=== PATIENT | female | born 1990 | race Caucasian/White ===

== ENCOUNTER 2019-05-24 01:07 | Emergency (ER) | payer MEDICAID ==
[~2019-05-24] VITALS: Ht 157.5 cm; Wt 149.7 kg
[2019-05-24] MEDS ORDERED: ONDANSETRON HCL/PF 4 MG/2 ML VIAL ONE (01:25)
[2019-05-24] MEDS ORDERED: MORPHINE SULFATE INJ 4 MG/ML DISP.SYRIN ONE (01:26)
[2019-05-24] MEDS ORDERED: IV NS 0.9% 1,000 ML BAG IV ONE (01:30)
[2019-05-24] MEDS ORDERED: MORPHINE SULFATE INJ 2 MG/ML DISP.SYRIN IV ONE (01:30)
[2019-05-24] MEDS ORDERED: ONDANSETRON HCL/PF 4 MG/2 ML VIAL IVP ONE (01:30)
--- NOTE | 2019-05-24 01:47 | NUR ---
BIB SELF WITH MOTHER. TO ER BED 9. AAOX4. AMBULATORY. NO RESP DISTRESS. C/O RUQ PAIN. PT REPORTS PAIN STARTED YESTERDAY, RATES PAIN AT 9/10. SHARP THROBBING DULL AND ACHING, INTERMETENT. PT REPORTS HAVING GALLSTONE AND SHE ATE RIBS YESTERDAY AND PAIN STARTED. PT ALSO REPORTS NAUSEA AND VOMMITNG. MD AT BEDSIDE FOR EVAL. ORDERS RECEIVED, NOTED AND CARRIED OUT. IV LINF OBTAINED ON RFA 20G. BLOOD DRAWN BY Vapotherm. PT ALSO MEDICATED
[2019-05-24 01:51] LABS: BASOPHILS # (AUTO) 0.1 /CMM (0.0-0.2); BASOPHILS % (AUTO) 0.5 % (0.0-2.0); EOSINOPHILS % (AUTO) 0.9 % (0.0-6.0); HEMATOCRIT 33 % (33-45); HEMOGLOBIN 10.6 g/dL (11.5-14.8); LYMPHOCYTES # (AUTO) 3.2 /CMM (0.8-4.8); LYMPHOCYTES % (AUTO) 29.6 % (20.0-44.0); MEAN CORPUSCULAR HGB CONC 32 g/dl (31.0-36.0); MEAN CORPUSCULAR VOLUME 77 fL (82-100); MONOCYTES # (AUTO) 0.7 /CMM (0.1-1.30); MONOCYTES % (AUTO) 6.3 % (2.0-12.0); NEUTROPHILS # (AUTO) 6.7 /CMM (1.8-8.9); NEUTROPHILS % (AUTO) 62.7 % (43.0-81.0); PLATELET COUNT (AUTO) 363 /CMM (150-450); RED BLOOD CELL COUNT(AUTO) 4.26 MIL/uL (4.0-5.2); WHITE BLOOD COUNT (AUTO) 10.7 K/uL (4.3-11.0)
[2019-05-24 02:02] LABS: CALCIUM, SERUM 8.5 mg/dL (8.5-10.1); CREATININE 0.7 mg/dL (0.6-1.3); POTASSIUM 3.7 mmol/L (3.5-5.1)
[2019-05-24 02:08] LABS: ALBUMIN 3.4 g/dL (3.4-5.0); BILIRUBIN,DIRECT 0.1 mg/dL (0.0-0.2); BILIRUBIN,TOTAL 0.3 mg/dL (0.2-1.0); TOTAL PROTEIN, SERUM 7.6 g/dL (6.4-8.2)
[2019-05-24] MEDS ORDERED: HYDROMORPHONE 1 MG/1 ML DISP.SYRIN ONE (02:24)
[2019-05-24] MEDS ORDERED: HYDROMORPHONE 1 MG/1 ML DISP.SYRIN IV ONE (02:30)
--- NOTE | 2019-05-24 03:09 | NUR ---
Patient discharged to home in stable condition. Written and verbal after care instructions given. Patient verbalizes understanding of instruction.IV removed. Catheter intact and site benign. Pressure and 4x4 applied to site. No bleeding noted. Pt ambulatory with a steady gait
[2019-05-24 03:10] VITALS: BP 136/75
== END 2019-05-24 03:11 | disposition home or self-care (01) ==
LOC: ER 01:07
DX: K80.20 Calculus of gallbladder without cholecystitis without obstruction (principal); R11.2 Nausea with vomiting, unspecified; Z98.890 Other specified postprocedural states
CPT/HCPCS: 36415; 80048; 80076; 83690; 85025; 96361; 96374; 96375; 99283; J1170; J2270; J2405; J7030

== ENCOUNTER 2019-09-11 20:29 | Emergency (ER) | payer MEDICAID ==
[~2019-09-11] VITALS: Ht 157.5 cm; Wt 149.7 kg
--- NOTE | 2019-09-11 20:50 | NUR ---
PT AMBULATED IN TO THE BATHROOM WITH A STEADY GAIT. PT IS TRYING TO GIVE A URINE SAMPLE.
--- NOTE | 2019-09-11 20:55 | NUR ---
PT PRESENTED TO THE ER WITH A C/O L SIDED FLANK PAIN. CONSTANT CRAMPING/ACHING PAIN THAT TURNS TO A SHARP STABBING PAIN WITH MOVEMENT. PROGRESSIVELY GETTING WORSE WHEN SHE PUTS WEIGHT ON HER LEFT SIDE.
--- NOTE | 2019-09-11 20:56 | NUR ---
CHEF CONCIERGE IS AT THE BEDSIDE FOR BLOOD DRAW.
--- NOTE | 2019-09-11 21:04 | NUR ---
DR HAWKINS IS AT THE BEDSIDE
[2019-09-11 21:06] LABS: BASOPHILS # (AUTO) 0.1 /CMM (0.0-0.2); EOSINOPHILS % (AUTO) 1.1 % (0.0-6.0); HEMATOCRIT 34 % (33-45); HEMOGLOBIN 10.9 g/dL (11.5-14.8); LYMPHOCYTES # (AUTO) 4.6 /CMM (0.8-4.8); LYMPHOCYTES % (AUTO) 39.6 % (20.0-44.0); MEAN CORPUSCULAR HGB CONC 32 g/dl (31.0-36.0); MEAN CORPUSCULAR VOLUME 78 fL (82-100); MONOCYTES # (AUTO) 0.6 /CMM (0.1-1.30); MONOCYTES % (AUTO) 5.4 % (2.0-12.0); NEUTROPHILS # (AUTO) 6.2 /CMM (1.8-8.9); NEUTROPHILS % (AUTO) 52.9 % (43.0-81.0); PLATELET COUNT (AUTO) 359 /CMM (150-450); RED BLOOD CELL COUNT(AUTO) 4.37 MIL/uL (4.0-5.2); WHITE BLOOD COUNT (AUTO) 11.6 K/uL (4.3-11.0)
[2019-09-11 21:17] LABS: CALCIUM, SERUM 8.5 mg/dL (8.5-10.1); CREATININE 0.8 mg/dL (0.6-1.3); POTASSIUM 3.9 mmol/L (3.5-5.1)
[2019-09-11 21:18] LABS: APPEARANCE,URINE Slightly Cloudy (CLEAR); BILIRUBIN,URINE SMALL (NEGATIVE); BLOOD, URINE Negative Ery/uL (NEGATIVE); COLOR,URINE Yellow (YELLOW); KETONES,URINE Trace (NEGATIVE); LEUKOCYTE ESTERASE ,URINE Negative (NEGATIVE); NITRITE, URINE Negative (NEGATIVE); PROTEIN,URINE Negative (NEGATIVE); UGLUCOSE Negative (NEGATIVE)
[2019-09-11 21:23] LABS: ALBUMIN 3.4 g/dL (3.4-5.0); BILIRUBIN,DIRECT 0.1 mg/dL (0.0-0.2); BILIRUBIN,TOTAL 0.4 mg/dL (0.2-1.0); TOTAL PROTEIN, SERUM 7.7 g/dL (6.4-8.2)
[2019-09-11 21:27] LABS: BACTERIA,URINE None seen /HPF (None Seen); RBC,URINE 0-2 /HPF (0-2); SQUAMOUS EPITHELIAL CELL,UR Many /HPF (None Seen); WBC,URINE 0-2 /HPF (0-3); YEAST,URINE None Seen /HPF (None Seen)
[2019-09-11 21:28] LABS: MUCUS,URINE Few /LPF (None Seen); URINE AMORPHOUS URATE Few /HPF (None Seen)
[2019-09-11] MEDS: IBUPROFEN 600 MG TABLET PO ONE (21:30)
[2019-09-11] MEDS ORDERED: IBUPROFEN 600 MG TABLET PO ONE (21:32)
--- NOTE | 2019-09-11 21:37 | NUR ---
PT REC'D A WARM BLANKET AND OVERHEAD LIGHTS WERE TURNED OFF. PT REMOVED THE BP CUFF AND STATED THAT SHE DID NOT WANT IT ON AT THIS TIME.
[2019-09-11] MEDS ORDERED: HYDROCODONE/APAP 5/325MG 1 EACH TABLET ONE (21:43)
[2019-09-11] MEDS ORDERED: FAMOTIDINE (20 MG) 20 MG TABLET ONE (21:44)
[2019-09-11] MEDS: FAMOTIDINE (20 MG) 20 MG TABLET PO ONE (21:58)
[2019-09-11] MEDS: HYDROCODONE/APAP 5/325MG 1 EACH TABLET PO ONE (21:58)
[2019-09-11 22:35] VITALS: BP 142/78
--- NOTE | 2019-09-11 22:47 | NUR ---
Patient discharged to home in stable condition. Written and verbal after care instructions given. Patient verbalizes understanding of instruction. PT STATED THAT SHE WAS GOING TO TAKE A TAXI TO THE NURSING HOME SHE WAS ALREADY SIGNED INTO AND SHE DIDN'T WANT ANY FOOD. PT TOOK 2 JUICES AND RESOURCE PACKAGE. PT AMBULATED OUT WITH A STEADY GAIT. VSS. NAD NOTED.
== END 2019-09-11 22:35 | disposition home or self-care (01) ==
LOC: ER 20:30
DX: M94.0 Chondrocostal junction syndrome [Tietze] (principal); Z98.890 Other specified postprocedural states
CPT/HCPCS: 36415; 71045-TC; 80048-TC; 80076-TC; 81000-TC; 83690-TC; 84703-TC; 85025-TC